=== PATIENT | male | born 1950 | race Caucasian/White ===

== ENCOUNTER 2023-11-04 05:35 | Outpatient (RCR) | payer MEDICARE, SELFPAY ==
[2023-11-04] MEDS: Normal Saline Flush 10 ML SYR IVP ×2 (11:21→15:01)
[2023-11-04 11:44] LABS: Abs Immature Grans 0.19 10^3/uL (0.0-0.06); Absolute Basophil Count 0.05 10^3/uL (0.0-0.2); Absolute Monocyte Count 1.12 10^3/uL (0.1-0.8); Basophils % 0.2; HCT 21.8 % (40.0-50.0); Immature Grans % 0.8; Lymphocytes % 4.9; MCH 27.7 pg (27.0-33.0); MCHC 31.7 % (32.0-36.0); MCV 88 fL (80-95); MPV 9.2 fL (8.0-11.0); Monocytes % 4.8; Neutrophils % 88.3; Platelet Count 390 10^3/uL (130-400); RBC 2.49 10^6/uL (4.36-5.78); RDW 17.2 % (11.8-14.1); RDW-SD 55.3 fL; WBC 23.25 10^3/uL (4.4-10.8)
[2023-11-04 11:58] LABS: Absolute Eosinophil Count 0.23 10^3/uL (0.0-0.7); Absolute Lymphocyte Count 1.14 10^3/uL (1.2-3.4); Absolute Neutrophil Count 20.53 10^3/uL (1.2-6.7)
[2023-11-04 12:00] LABS: ALT 17 U/L (16-63); AST 11 U/L (15-37); Alkaline Phosphatase 71 U/L (46-116); Anion Gap 5.3 mmol/L (3-11); BUN 12 mg/dL (7-18); Bilirubin, Total 0.3 mg/dL (0.2-1.0); CO2 26.7 mmol/L (21.0-32.0); CREATININE 1.2 mg/dL (0.70-1.30); Calcium 8.2 mg/dL (8.5-10.1); Chloride 100 mmol/L (98-107); Diff Comment Diff Reviewed; Estimated GFR 64.25 (mL/min/1.73m2); Glucose 134 mg/dL (74-106); HGB 6.9 g/dL (13.5-17.5); Potassium 4.4 mmol/L (3.5-5.1); RBC Morphology Normal; Sodium 132 mmol/L (136-145); Total Protein 5.6 g/dL (6.4-8.2)
== END 2023-11-04 23:59 | disposition home or self-care (01) ==
LOC: INF 05:35
PROVIDERS: Nurse Practitioner; PCP Family Medicine; Visit Provider Internal Medicine
DX: C79.10 Secondary malignant neoplasm of unspecified urinary organs (principal); Z45.2 Encounter for adjustment and management of vascular access device
CPT/HCPCS: 36591; 80053; 86850; 86900; 86901; 86920; 85025

== ENCOUNTER 2023-12-04 03:49 | Outpatient (RCR) | payer MEDICARE, SELFPAY ==
[2023-11-05] VITALS (11 sets, daily range): BP systolic 89–108; BP diastolic 53–64; PULSE 62–75; RESP 16–18; TEMP 36.6–37; O2SAT 88–100
[2023-11-06] MEDS: Normal Saline Flush 10 ML SYR IVP (13:00)
[2023-11-06 13:31] LABS: Abs Immature Grans 0.18 10^3/uL (0.0-0.06); Absolute Eosinophil Count 0.52 10^3/uL (0.0-0.7); Absolute Monocyte Count 0.61 10^3/uL (0.1-0.8); Absolute Neutrophil Count 21.45 10^3/uL (1.2-6.7); Basophils % 0.1 %; Eosinophils % 2.2 %; HGB 8.4 g/dL (13.5-17.5); Immature Grans % 0.8 %; Lymphocytes % 3.6 %; MCH 28.3 pg (27.0-33.0); MCHC 32.3 % (32.0-36.0); MCV 88 fL (80-95); Monocytes % 2.6 %; Neutrophils % 90.7 %; Platelet Count 324 10^3/uL (130-400); RBC 2.97 10^6/uL (4.36-5.78); RDW 16.1 % (11.8-14.1); RDW-SD 51.7 fL; WBC 23.65 10^3/uL (4.4-10.8)
[2023-11-06 13:33] LABS: Absolute Basophil Count 0.02 10^3/uL (0.0-0.2); Absolute Lymphocyte Count 0.85 10^3/uL (1.2-3.4)
[2023-11-06 13:42] LABS: ALT 15 U/L (16-63); AST 14 U/L (15-37); Albumin 1.7 g/dL (3.4-5.0); Alkaline Phosphatase 69 U/L (46-116); Anion Gap 4.4 mmol/L (3-11); BUN 15 mg/dL (7-18); Bilirubin, Total 0.5 mg/dL (0.2-1.0); CO2 28.6 mmol/L (21.0-32.0); Chloride 101 mmol/L (98-107); Estimated GFR 79.97 (mL/min/1.73m2); Glucose 102 mg/dL (74-106); Sodium 134 mmol/L (136-145); Total Protein 5.3 g/dL (6.4-8.2)
[2023-11-06 13:49] LABS: Diff Comment Diff Reviewed; RBC Morphology Normal
[2023-11-10] MEDS: Normal Saline Flush 10 ML SYR IVP (14:15)
[2023-11-10 14:45] LABS: Abs Immature Grans 0.18 10^3/uL (0.0-0.06); Absolute Eosinophil Count 0.13 10^3/uL (0.0-0.7); Absolute Lymphocyte Count 0.67 10^3/uL (1.2-3.4); Basophils % 0.2 %; Eosinophils % 1.1 %; HCT 24.1 % (40.0-50.0); HGB 7.9 g/dL (13.5-17.5); Immature Grans % 1.5 %; Lymphocytes % 5.5 %; MCH 28.5 pg (27.0-33.0); MCHC 32.8 % (32.0-36.0); MCV 87 fL (80-95); MPV 9.3 fL (8.0-11.0); Monocytes % 1.6 %; Neutrophils % 90.1 %; Platelet Count 282 10^3/uL (130-400); RBC 2.77 10^6/uL (4.36-5.78); RDW 15.6 % (11.8-14.1); RDW-SD 49.7 fL; WBC 12.14 10^3/uL (4.4-10.8)
[2023-11-10 14:46] LABS: Absolute Basophil Count 0.02 10^3/uL (0.0-0.2); Absolute Monocyte Count 0.19 10^3/uL (0.1-0.8); Absolute Neutrophil Count 10.94 10^3/uL (1.2-6.7)
[2023-11-10 15:00] LABS: ALT 14 U/L (16-63); AST 15 U/L (15-37); Albumin 1.8 g/dL (3.4-5.0); Alkaline Phosphatase 75 U/L (46-116); Anion Gap 6.4 mmol/L (3-11); BUN 16 mg/dL (7-18); Bilirubin, Total 0.5 mg/dL (0.2-1.0); CO2 28.6 mmol/L (21.0-32.0); CREATININE 0.9 mg/dL (0.70-1.30); Calcium 8.6 mg/dL (8.5-10.1); Chloride 98 mmol/L (98-107); Estimated GFR 90.74 (mL/min/1.73m2); Glucose 93 mg/dL (74-106); Potassium 4.4 mmol/L (3.5-5.1); Sodium 133 mmol/L (136-145); Total Protein 5.8 g/dL (6.4-8.2)
[2023-11-11] MEDS: Normal Saline Flush 10 ML SYR IVP (10:20)
[2023-11-11 10:59] VITALS: BP 109/69; PULSE 65; RESP 18; TEMP 36.7; O2SAT 100
[2023-11-11 11:15] VITALS: BP 95/60; PULSE 61; RESP 18; TEMP 36.4; O2SAT 99
[2023-11-11 11:30] VITALS: BP 98/53; PULSE 58; RESP 18; TEMP 36.5; O2SAT 98
[2023-11-11 12:00] VITALS: BP 113/74; PULSE 60; RESP 18; TEMP 36.5; O2SAT 98
[2023-11-11 13:00] VITALS: BP 120/75; PULSE 63; RESP 18; TEMP 36.5; O2SAT 99
[2023-11-13] MEDS: Normal Saline Flush 10 ML SYR IVP (15:00)
[2023-11-13 15:29] LABS: Abs Immature Grans 0.09 10^3/uL (0.0-0.06); Absolute Basophil Count 0.01 10^3/uL (0.0-0.2); Absolute Eosinophil Count 0.22 10^3/uL (0.0-0.7); Absolute Monocyte Count 0.11 10^3/uL (0.1-0.8); Absolute Neutrophil Count 10.85 10^3/uL (1.2-6.7); Basophils % 0.1 %; Eosinophils % 1.9 %; HCT 27.1 % (40.0-50.0); Immature Grans % 0.8 %; Lymphocytes % 4.2 %; MCH 29.1 pg (27.0-33.0); MCHC 33.2 % (32.0-36.0); MCV 88 fL (80-95); Monocytes % 0.9 %; Neutrophils % 92.1 %; Platelet Count 189 10^3/uL (130-400); RBC 3.09 10^6/uL (4.36-5.78); RDW 15.7 % (11.8-14.1); RDW-SD 49.4 fL; WBC 11.78 10^3/uL (4.4-10.8)
[2023-11-13 15:33] LABS: Absolute Lymphocyte Count 0.49 10^3/uL (1.2-3.4)
[2023-11-13 15:44] LABS: ALT 11 U/L (16-63); AST 15 U/L (15-37); Albumin 1.7 g/dL (3.4-5.0); Alkaline Phosphatase 78 U/L (46-116); Anion Gap 6.2 mmol/L (3-11); BUN 13 mg/dL (7-18); Bilirubin, Total 0.4 mg/dL (0.2-1.0); CO2 27.8 mmol/L (21.0-32.0); Calcium 8.4 mg/dL (8.5-10.1); Chloride 99 mmol/L (98-107); Estimated GFR 79.97 (mL/min/1.73m2); Glucose 127 mg/dL (74-106); Potassium 4.2 mmol/L (3.5-5.1); Sodium 133 mmol/L (136-145); Total Protein 5.7 g/dL (6.4-8.2)
[2023-11-17] MEDS: Normal Saline Flush 10 ML SYR IVP (12:51)
[2023-11-17 13:33] LABS: Abs Immature Grans 0.05 10^3/uL (0.0-0.06); Absolute Basophil Count 0.01 10^3/uL (0.0-0.2); Absolute Eosinophil Count 0.12 10^3/uL (0.0-0.7); Absolute Lymphocyte Count 0.23 10^3/uL (1.2-3.4); Absolute Monocyte Count 0.11 10^3/uL (0.1-0.8); Absolute Neutrophil Count 6.79 10^3/uL (1.2-6.7); Basophils % 0.1 %; Eosinophils % 1.6 %; HCT 26.7 % (40.0-50.0); HGB 8.7 g/dL (13.5-17.5); Immature Grans % 0.7 %; Lymphocytes % 3.1 %; MCH 28.4 pg (27.0-33.0); MCHC 32.6 % (32.0-36.0); MCV 87 fL (80-95); MPV 9.7 fL (8.0-11.0); Monocytes % 1.5 %; Platelet Count 170 10^3/uL (130-400); RBC 3.06 10^6/uL (4.36-5.78); RDW 15.7 % (11.8-14.1); RDW-SD 48.9 fL; WBC 7.31 10^3/uL (4.4-10.8)
[2023-11-17 13:46] LABS: ALT 19 U/L (16-63); AST 18 U/L (15-37); Albumin 1.6 g/dL (3.4-5.0); Alkaline Phosphatase 82 U/L (46-116); Anion Gap 7.9 mmol/L (3-11); BUN 11 mg/dL (7-18); Bilirubin, Total 0.5 mg/dL (0.2-1.0); CO2 28.1 mmol/L (21.0-32.0); Calcium 8.3 mg/dL (8.5-10.1); Chloride 96 mmol/L (98-107); Estimated GFR 79.97 (mL/min/1.73m2); Glucose 125 mg/dL (74-106); Potassium 4.5 mmol/L (3.5-5.1); Sodium 132 mmol/L (136-145); Total Protein 5.7 g/dL (6.4-8.2)
[2023-11-20] MEDS: Normal Saline Flush 10 ML SYR IVP (14:22)
[2023-11-20 14:34] LABS: Abs Immature Grans 0.07 10^3/uL (0.0-0.06); Absolute Basophil Count 0.01 10^3/uL (0.0-0.2); Absolute Eosinophil Count 0.25 10^3/uL (0.0-0.7); Absolute Lymphocyte Count 0.31 10^3/uL (1.2-3.4); Absolute Monocyte Count 0.09 10^3/uL (0.1-0.8); Absolute Neutrophil Count 7.34 10^3/uL (1.2-6.7); Basophils % 0.1 %; Eosinophils % 3.1 %; HCT 25.2 % (40.0-50.0); HGB 8.3 g/dL (13.5-17.5); Immature Grans % 0.9 %; Lymphocytes % 3.8 %; MCH 28.8 pg (27.0-33.0); MCHC 32.9 % (32.0-36.0); MCV 88 fL (80-95); MPV 9.1 fL (8.0-11.0); Monocytes % 1.1 %; Platelet Count 175 10^3/uL (130-400); RBC 2.88 10^6/uL (4.36-5.78); RDW 16.2 % (11.8-14.1); RDW-SD 49.1 fL; WBC 8.07 10^3/uL (4.4-10.8)
[2023-11-20 14:50] LABS: ALT 19 U/L (16-63); AST 15 U/L (15-37); Albumin 1.6 g/dL (3.4-5.0); Alkaline Phosphatase 85 U/L (46-116); Anion Gap 5.2 mmol/L (3-11); BUN 11 mg/dL (7-18); Bilirubin, Total 0.5 mg/dL (0.2-1.0); CO2 28.8 mmol/L (21.0-32.0); CREATININE 1.1 mg/dL (0.70-1.30); Calcium 7.8 mg/dL (8.5-10.1); Chloride 97 mmol/L (98-107); Estimated GFR 71.32 (mL/min/1.73m2); Glucose 107 mg/dL (74-106); Potassium 4.5 mmol/L (3.5-5.1); Sodium 131 mmol/L (136-145); Total Protein 5.6 g/dL (6.4-8.2)
[2023-11-24] MEDS: Normal Saline Flush 10 ML SYR IVP (12:52)
[2023-11-24 13:00] LABS: Abs Immature Grans 0.07 10^3/uL (0.0-0.06); Absolute Eosinophil Count 0.11 10^3/uL (0.0-0.7); Absolute Lymphocyte Count 0.12 10^3/uL (1.2-3.4); Absolute Monocyte Count 0.08 10^3/uL (0.1-0.8); Absolute Neutrophil Count 5.34 10^3/uL (1.2-6.7); Eosinophils % 1.9 %; HCT 23.1 % (40.0-50.0); HGB 7.6 g/dL (13.5-17.5); Immature Grans % 1.2 %; Lymphocytes % 2.1 %; MCHC 32.9 % (32.0-36.0); MCV 88 fL (80-95); MPV 8.8 fL (8.0-11.0); Monocytes % 1.4 %; Neutrophils % 93.4 %; Platelet Count 180 10^3/uL (130-400); RBC 2.62 10^6/uL (4.36-5.78); RDW 16.4 % (11.8-14.1); RDW-SD 48.9 fL; WBC 5.72 10^3/uL (4.4-10.8)
[2023-11-24 13:15] LABS: ALT 16 U/L (16-63); AST 14 U/L (15-37); Albumin 1.4 g/dL (3.4-5.0); Alkaline Phosphatase 84 U/L (46-116); Anion Gap 5.2 mmol/L (3-11); BUN 10 mg/dL (7-18); Bilirubin, Total 0.4 mg/dL (0.2-1.0); CO2 27.8 mmol/L (21.0-32.0); Calcium 7.7 mg/dL (8.5-10.1); Chloride 99 mmol/L (98-107); Estimated GFR 79.97 (mL/min/1.73m2); Glucose 158 mg/dL (74-106); Potassium 4.8 mmol/L (3.5-5.1); Sodium 132 mmol/L (136-145); Total Protein 5.3 g/dL (6.4-8.2)
[2023-11-25 09:53] VITALS: BP 96/62; PULSE 63; RESP 16; TEMP 35.9; O2SAT 97
[2023-11-25 10:10] VITALS: BP 92/54; PULSE 63; RESP 16; TEMP 36.6; O2SAT 97
[2023-11-25 10:25] VITALS: BP 91/55; PULSE 66; RESP 16; TEMP 36.2; O2SAT 96
[2023-11-25 10:55] VITALS: BP 92/56; PULSE 66; RESP 17; TEMP 36.4; O2SAT 98
[2023-11-25 12:00] VITALS: BP 95/59; PULSE 60; RESP 16; TEMP 36.2; O2SAT 100
[2023-11-27] MEDS: Normal Saline Flush 10 ML SYR IVP (11:58)
[2023-11-27 12:24] LABS: Abs Immature Grans 0.03 10^3/uL (0.0-0.06); Absolute Basophil Count 0.01 10^3/uL (0.0-0.2); Absolute Eosinophil Count 0.13 10^3/uL (0.0-0.7); Absolute Lymphocyte Count 0.16 10^3/uL (1.2-3.4); Absolute Monocyte Count 0.06 10^3/uL (0.1-0.8); Absolute Neutrophil Count 3.34 10^3/uL (1.2-6.7); Basophils % 0.3 %; Eosinophils % 3.5 %; HCT 25.5 % (40.0-50.0); HGB 8.5 g/dL (13.5-17.5); Immature Grans % 0.8 %; Lymphocytes % 4.3 %; MCH 29.3 pg (27.0-33.0); MCHC 33.3 % (32.0-36.0); MCV 88 fL (80-95); MPV 9.1 fL (8.0-11.0); Monocytes % 1.6 %; Neutrophils % 89.5 %; Platelet Count 167 10^3/uL (130-400); RDW 16.5 % (11.8-14.1); RDW-SD 48.9 fL; WBC 3.73 10^3/uL (4.4-10.8)
[2023-11-27 12:40] LABS: ALT 20 U/L (16-63); AST 17 U/L (15-37); Albumin 1.6 g/dL (3.4-5.0); Alkaline Phosphatase 86 U/L (46-116); Anion Gap 4.8 mmol/L (3-11); BUN 8 mg/dL (7-18); Bilirubin, Total 0.4 mg/dL (0.2-1.0); CO2 28.2 mmol/L (21.0-32.0); CREATININE 0.9 mg/dL (0.70-1.30); Chloride 100 mmol/L (98-107); Estimated GFR 90.74 (mL/min/1.73m2); Glucose 98 mg/dL (74-106); Potassium 4.5 mmol/L (3.5-5.1); Sodium 133 mmol/L (136-145); Total Protein 5.5 g/dL (6.4-8.2)
[2023-12-02] MEDS: Normal Saline Flush 10 ML SYR IVP (11:15)
[2023-12-02 11:43] LABS: Abs Immature Grans 0.06 10^3/uL (0.0-0.06); Absolute Basophil Count 0.01 10^3/uL (0.0-0.2); Absolute Eosinophil Count 0.29 10^3/uL (0.0-0.7); Absolute Lymphocyte Count 0.16 10^3/uL (1.2-3.4); Absolute Monocyte Count 0.17 10^3/uL (0.1-0.8); Absolute Neutrophil Count 3.89 10^3/uL (1.2-6.7); Basophils % 0.2 %; Eosinophils % 6.3 %; HCT 26.5 % (40.0-50.0); HGB 8.7 g/dL (13.5-17.5); Immature Grans % 1.3 %; Lymphocytes % 3.5 %; MCH 29.1 pg (27.0-33.0); MCHC 32.8 % (32.0-36.0); MCV 89 fL (80-95); Monocytes % 3.7 %; Platelet Count 225 10^3/uL (130-400); RBC 2.99 10^6/uL (4.36-5.78); RDW 17.2 % (11.8-14.1); RDW-SD 49.6 fL; WBC 4.58 10^3/uL (4.4-10.8)
[2023-12-02 12:02] LABS: ALT 19 U/L (16-63); AST 17 U/L (15-37); Albumin 1.7 g/dL (3.4-5.0); Alkaline Phosphatase 82 U/L (46-116); Anion Gap 6.3 mmol/L (3-11); BUN 6 mg/dL (7-18); Bilirubin, Total 0.4 mg/dL (0.2-1.0); CO2 26.7 mmol/L (21.0-32.0); CREATININE 0.9 mg/dL (0.70-1.30); Chloride 101 mmol/L (98-107); Estimated GFR 90.74 (mL/min/1.73m2); Glucose 96 mg/dL (74-106); Sodium 134 mmol/L (136-145); Total Protein 5.7 g/dL (6.4-8.2)
[2023-12-04] MEDS: Normal Saline Flush 10 ML SYR IVP (12:13)
[2023-12-04 12:30] LABS: Abs Immature Grans 0.03 10^3/uL (0.0-0.06); Absolute Basophil Count 0.01 10^3/uL (0.0-0.2); Absolute Eosinophil Count 0.14 10^3/uL (0.0-0.7); Absolute Lymphocyte Count 0.14 10^3/uL (1.2-3.4); Absolute Monocyte Count 0.07 10^3/uL (0.1-0.8); Absolute Neutrophil Count 2.23 10^3/uL (1.2-6.7); Basophils % 0.4 %; Eosinophils % 5.3 %; HCT 27.2 % (40.0-50.0); HGB 8.9 g/dL (13.5-17.5); Immature Grans % 1.1 %; Lymphocytes % 5.3 %; MCH 29.4 pg (27.0-33.0); MCHC 32.7 % (32.0-36.0); MCV 90 fL (80-95); MPV 9.3 fL (8.0-11.0); Monocytes % 2.7 %; Neutrophils % 85.2 %; Platelet Count 184 10^3/uL (130-400); RBC 3.03 10^6/uL (4.36-5.78); RDW 17.9 % (11.8-14.1); RDW-SD 49.6 fL; WBC 2.62 10^3/uL (4.4-10.8)
[2023-12-04 12:46] LABS: ALT 24 U/L (16-63); AST 18 U/L (15-37); Albumin 1.8 g/dL (3.4-5.0); Alkaline Phosphatase 86 U/L (46-116); Anion Gap 4.6 mmol/L (3-11); BUN 7 mg/dL (7-18); Bilirubin, Total 0.5 mg/dL (0.2-1.0); CO2 29.4 mmol/L (21.0-32.0); CREATININE 1.1 mg/dL (0.70-1.30); Calcium 8.1 mg/dL (8.5-10.1); Chloride 102 mmol/L (98-107); Estimated GFR 71.32 (mL/min/1.73m2); Glucose 131 mg/dL (74-106); Potassium 4.6 mmol/L (3.5-5.1); Sodium 136 mmol/L (136-145); Total Protein 5.9 g/dL (6.4-8.2)
== END 2023-12-05 23:59 | disposition home or self-care (01) ==
LOC: INF 03:49
PROVIDERS: Nurse Practitioner; PCP Family Medicine; Visit Provider Internal Medicine
DX: C79.10 Secondary malignant neoplasm of unspecified urinary organs (principal); C67.9 Malignant neoplasm of bladder, unspecified
CPT/HCPCS: 36430; 36591; 80053; 86850; 86900; 86901; 86920; 96523; 85025; P9016

== ENCOUNTER 2023-12-25 00:44 | Outpatient (RCR) | payer MEDICARE, SELFPAY ==
[2023-12-06 00:27] VITALS: BP 95/59; PULSE 60; RESP 16; TEMP 36.2
[2023-12-08] MEDS: Normal Saline Flush 10 ML SYR IVP (12:00)
[2023-12-08 12:41] LABS: Abs Immature Grans 0.04 10^3/uL (0.0-0.06); Absolute Basophil Count 0.01 10^3/uL (0.0-0.2); Absolute Eosinophil Count 0.29 10^3/uL (0.0-0.7); Absolute Monocyte Count 0.14 10^3/uL (0.1-0.8); Absolute Neutrophil Count 3.58 10^3/uL (1.2-6.7); Basophils % 0.2 %; HCT 24.3 % (40.0-50.0); HGB 8.3 g/dL (13.5-17.5); Lymphocytes % 2.4 %; MCH 30.1 pg (27.0-33.0); MCHC 34.2 % (32.0-36.0); MCV 88 fL (80-95); MPV 9.3 fL (8.0-11.0); Monocytes % 3.4 %; Platelet Count 242 10^3/uL (130-400); RBC 2.76 10^6/uL (4.36-5.78); RDW 18.4 % (11.8-14.1); RDW-SD 49.4 fL; WBC 4.16 10^3/uL (4.4-10.8)
[2023-12-08 12:59] LABS: ALT 18 U/L (16-63); AST 15 U/L (15-37); Albumin 1.9 g/dL (3.4-5.0); Alkaline Phosphatase 84 U/L (46-116); Anion Gap 6.8 mmol/L (3-11); BUN 11 mg/dL (7-18); Bilirubin, Total 0.6 mg/dL (0.2-1.0); CO2 28.2 mmol/L (21.0-32.0); Calcium 8.4 mg/dL (8.5-10.1); Chloride 99 mmol/L (98-107); Estimated GFR 79.97 (mL/min/1.73m2); Glucose 126 mg/dL (74-106); Potassium 4.3 mmol/L (3.5-5.1); Sodium 134 mmol/L (136-145); Total Protein 5.9 g/dL (6.4-8.2)
[2023-12-11] MEDS: Normal Saline Flush 10 ML SYR IVP (12:00)
[2023-12-11 12:29] LABS: Abs Immature Grans 0.06 10^3/uL (0.0-0.06); Absolute Basophil Count 0.01 10^3/uL (0.0-0.2); Absolute Eosinophil Count 0.22 10^3/uL (0.0-0.7); Absolute Lymphocyte Count 0.24 10^3/uL (1.2-3.4); Absolute Monocyte Count 0.59 10^3/uL (0.1-0.8); Absolute Neutrophil Count 4.62 10^3/uL (1.2-6.7); Basophils % 0.2 %; Eosinophils % 3.8 %; HCT 27.6 % (40.0-50.0); HGB 9.2 g/dL (13.5-17.5); Lymphocytes % 4.2 %; MCH 29.8 pg (27.0-33.0); MCHC 33.3 % (32.0-36.0); MCV 89 fL (80-95); MPV 8.9 fL (8.0-11.0); Monocytes % 10.3 %; Neutrophils % 80.5 %; Platelet Count 195 10^3/uL (130-400); RBC 3.09 10^6/uL (4.36-5.78); RDW 21.2 % (11.8-14.1); RDW-SD 51.1 fL; WBC 5.74 10^3/uL (4.4-10.8)
[2023-12-11 12:42] LABS: Anisocytosis 2+; Diff Comment RBC Morph Reviewed; Poikilocytes 1+; Polychromasia Present
[2023-12-15 11:56] LABS: HCT 22.5 % (40.0-50.0); HGB 7.5 g/dL (13.5-17.5); MCH 29.8 pg (27.0-33.0); MCHC 33.3 % (32.0-36.0); MCV 89 fL (80-95); MPV 9.8 fL (8.0-11.0); Nucleated RBC 0.4 % (0.0-0.3); Platelet Count 226 10^3/uL (130-400); RBC 2.52 10^6/uL (4.36-5.78); RDW 21.2 % (11.8-14.1); RDW-SD 64.1 fL; WBC 5.06 10^3/uL (4.4-10.8)
[2023-12-15] MEDS: Normal Saline Flush 10 ML SYR IVP (12:04)
[2023-12-15 12:11] LABS: Bands % 1 %
[2023-12-15 12:12] LABS: Absolute Eosinophil Count 0.71 10^3/uL (0.0-0.7); Absolute Monocyte Count 0.35 10^3/uL (0.1-0.8); Anisocytosis 2+; Diff Comment Manual Differential; Poikilocytes 2+
[2023-12-15 12:19] LABS: ALT 15 U/L (16-63); AST 14 U/L (15-37); Alkaline Phosphatase 70 U/L (46-116); Anion Gap 4.6 mmol/L (3-11); BUN 14 mg/dL (7-18); Bilirubin, Total 0.6 mg/dL (0.2-1.0); CO2 28.4 mmol/L (21.0-32.0); CREATININE 0.8 mg/dL (0.70-1.30); Calcium 8.2 mg/dL (8.5-10.1); Chloride 100 mmol/L (98-107); Estimated GFR 94.03 (mL/min/1.73m2); Glucose 109 mg/dL (74-106); Potassium 4.3 mmol/L (3.5-5.1); Sodium 133 mmol/L (136-145); Total Protein 5.7 g/dL (6.4-8.2)
[2023-12-16 13:20] VITALS: BP 95/62; PULSE 86; RESP 14; TEMP 36.1; O2SAT 97
[2023-12-16 13:43] VITALS: BP 97/65; PULSE 64; RESP 14; TEMP 36.8; O2SAT 96
[2023-12-16 14:02] VITALS: BP 104/70; PULSE 67; TEMP 37.2; O2SAT 99
[2023-12-16 14:13] VITALS: BP 134/84; PULSE 72; RESP 16; TEMP 37.5; O2SAT 98
[2023-12-16 15:13] VITALS: BP 116/75; PULSE 64; RESP 15; TEMP 36.8; O2SAT 99
[2023-12-18 12:09] LABS: Abs Immature Grans 0.07 10^3/uL (0.0-0.06); Absolute Basophil Count 0.01 10^3/uL (0.0-0.2); Absolute Eosinophil Count 0.07 10^3/uL (0.0-0.7); Absolute Lymphocyte Count 0.12 10^3/uL (1.2-3.4); Absolute Monocyte Count 0.31 10^3/uL (0.1-0.8); Absolute Neutrophil Count 4.19 10^3/uL (1.2-6.7); Basophils % 0.2 %; Eosinophils % 1.5 %; HCT 25.6 % (40.0-50.0); HGB 8.3 g/dL (13.5-17.5); Immature Grans % 1.5 %; Lymphocytes % 2.5 %; MCH 29.5 pg (27.0-33.0); MCHC 32.4 % (32.0-36.0); MCV 91 fL (80-95); MPV 9.1 fL (8.0-11.0); Monocytes % 6.5 %; Neutrophils % 87.8 %; Platelet Count 207 10^3/uL (130-400); RBC 2.81 10^6/uL (4.36-5.78); RDW 21.5 % (11.8-14.1); RDW-SD 65.7 fL; WBC 4.77 10^3/uL (4.4-10.8)
[2023-12-18 12:34] LABS: ALT 13 U/L (16-63); AST 12 U/L (15-37); Albumin 1.9 g/dL (3.4-5.0); Alkaline Phosphatase 67 U/L (46-116); Anion Gap 4.5 mmol/L (3-11); BUN 17 mg/dL (7-18); Bilirubin, Total 0.7 mg/dL (0.2-1.0); CO2 29.5 mmol/L (21.0-32.0); CREATININE 0.9 mg/dL (0.70-1.30); Chloride 98 mmol/L (98-107); Estimated GFR 90.74 (mL/min/1.73m2); Glucose 117 mg/dL (74-106); Potassium 4.2 mmol/L (3.5-5.1); Sodium 132 mmol/L (136-145); Total Protein 5.7 g/dL (6.4-8.2)
[2023-12-23] MEDS: Normal Saline Flush 10 ML SYR IVP (12:16)
[2023-12-23 12:28] LABS: HCT 24.3 % (40.0-50.0); HGB 8.1 g/dL (13.5-17.5); MCH 30.1 pg (27.0-33.0); MCHC 33.3 % (32.0-36.0); MCV 90 fL (80-95); MPV 9.5 fL (8.0-11.0); Platelet Count 191 10^3/uL (130-400); RBC 2.69 10^6/uL (4.36-5.78); RDW 21.7 % (11.8-14.1); RDW-SD 68.1 fL; WBC 4.11 10^3/uL (4.4-10.8)
[2023-12-23 12:43] LABS: ALT 16 U/L (16-63); AST 13 U/L (15-37); Albumin 2.1 g/dL (3.4-5.0); Alkaline Phosphatase 70 U/L (46-116); Anion Gap 7.4 mmol/L (3-11); BUN 13 mg/dL (7-18); Bilirubin, Total 0.8 mg/dL (0.2-1.0); CO2 26.6 mmol/L (21.0-32.0); CREATININE 0.9 mg/dL (0.70-1.30); Calcium 7.8 mg/dL (8.5-10.1); Chloride 98 mmol/L (98-107); Estimated GFR 90.74 (mL/min/1.73m2); Glucose 120 mg/dL (74-106); Potassium 3.7 mmol/L (3.5-5.1); Sodium 132 mmol/L (136-145); Total Protein 5.8 g/dL (6.4-8.2)
[2023-12-23 12:53] LABS: Absolute Eosinophil Count 0.29 10^3/uL (0.0-0.7); Absolute Lymphocyte Count 1.36 10^3/uL (1.2-3.4); Absolute Monocyte Count 0.12 10^3/uL (0.1-0.8); Absolute Neutrophil Count 2.34 10^3/uL (1.2-6.7); Anisocytosis 2+; Diff Comment Manual Differential
== END 2024-01-04 23:59 | disposition home or self-care (01) ==
LOC: INF 00:44
PROVIDERS: Nurse Practitioner; PCP Family Medicine; Visit Provider Internal Medicine
DX: C79.10 Secondary malignant neoplasm of unspecified urinary organs (principal); Z45.2 Encounter for adjustment and management of vascular access device
CPT/HCPCS: 36430; 36591; 80053; 86850; 86900; 86901; 86920; 85025; P9016